=== PATIENT | male | born 1995 | race American Indian/Alaskan Native ===

== ENCOUNTER 2021-09-24 22:33 | Emergency (ER) | payer SELFPAY ==
[2021-09-24] MEDS ORDERED: ASPIRIN 325 MG TAB PO ONE (22:59)
--- NOTE | 2021-09-24 23:39 | XRay Report ---
CHEST 2 VIEWS INDICATION / CLINICAL INFORMATION: Chest Pain. COMPARISON: None available. FINDINGS: SUPPORT DEVICES: None. HEART / MEDIASTINUM: No significant abnormality. LUNGS / PLEURA: No significant pulmonary or pleural abnormality. No pneumothorax. BONES: No significant osseous abnormality. ADDITIONAL FINDINGS: No significant additional findings. IMPRESSION: 1. No active cardiopulmonary disease. Signer Name: Kameron Dwyer II, MD Signed: 09/24/2021 11:34 PM Workstation Name: [id number]
[2021-09-24 23:51] LABS: Basophils % (Auto) 0.2 % (0.0-1.8); Eosinophils # (Auto) 0.1 K/mm3 (0.0-0.4); Eosinophils % (Auto) 0.5 % (0.0-4.3); Hemoglobin 16.4 gm/dl (11.8-15.2); Lymphocytes # (Auto) 1.6 K/mm3 (1.2-5.4); Lymphocytes % (Auto) 16.3 % (13.4-35.0); Mean Corpuscular HGB Conc 33 % (32-34); Mean Corpuscular Volume 87 fl (84-94); Monocytes # (Auto) 0.6 K/mm3 (0.0-0.8); Monocytes % (Auto) 5.8 % (0.0-7.3); Platelet Count 257 K/mm3 (140-440); Red Blood Count 5.74 M/mm3 (3.65-5.03)
[2021-09-25 00:18] LABS: BUN/Creatinine Ratio 13; Blood Urea Nitrogen 16 mg/dL (9-20); Calcium 9.4 mg/dL (8.4-10.2); Hemolysis Index 11
[2021-09-25] MEDS ORDERED: KETOROLAC 10 MG TAB PO ONE (00:24)
[2021-09-25] MEDS ORDERED: TETANUS,DIPH,PERTUSS(ACELL) VACCINE 0.5 ML SYRINGE IM ONE (00:24)
[2021-09-25] MEDS ORDERED: CYCLOBENZAPRINE 10 MG TAB PO ONE (00:24)
[2021-09-25] MEDS ORDERED: LET TOPICAL (LIDOCAINE/EPINEPHRINE/TETRACAINE) 3 ML TP ONE (00:25)
--- NOTE | 2021-09-25 01:31 | Emergency Department Report ---
ED Dizziness HPI - General Chief Complaint: Chest Pain Stated Complaint: CHEST PAIN Time Seen by Provider: 09/25/21 00:02 Source: patient Mode of arrival: Ambulatory Limitations: No Limitations - History of Present Illness Initial Comments: 25-year-old black male with no past medical history presents to the emergency department for evaluation of dizziness, chest pain, headache, and left shoulder pain. He states that he was vaping THC oil and then became dizzy. He states that he attempted to walk to his room but fell down and hit the back of his he ad. He denies loss of consciousness but states that he hit so hard that his head, shoulder, and chest are hurting. He states that he is still dizzy also. He states that he is used vape before but never THC oil in the vape. MD Complaint: dizziness, lightheadedness -: Sudden Timing: sudden onset Description: lightheadedness, off-balance, near-syncope History of Same: No History of Trauma: Yes (Tripped and fell and hit his head after dizziness st arted) Severity: moderate Associated Symptoms: chest pain. denies: confusion, cough, diaphoresis, fever/chills, loss of appetite, malaise, rash, seizure, shortness of breath, syncope, weakness - Related Data Previous Rx's Medication Instructions Recorded Last Taken Type Ibuprofen [Motrin 800 MG tab] 800 mg PO Q8HR PRN #30 tablet 09/25/21 Unknown Rx Allergies Allergy/AdvReac Type Severity Reaction Status Date / Time No Known Allergies Allergy Verified 09/25/21 00:24 ED Review of Systems ROS: Stated complaint: CHEST PAIN Other details as noted in HPI Comment: All other systems reviewed and negative Constitutional: denies: chills, fever Respiratory: denies: cough, shortness of breath, SOB with exertion, SOB at rest, wheezing Cardiovascular: chest pain. denies: palpitations, dyspnea on exertion, orthopnea, edema Gastrointestinal: denies: abdominal pain, nausea, vomiting Genitourinary: denies: urgency, dysuria, frequency, hematuria, discharge, testicular pain Musculoskeletal: denies: back pain Neurological: headache. denies: weakness, numbness, paresthesias, confusion, abnormal gait ED Past Medical Hx - Medications Home Medications: Home Medications Medication Instructions Recorded Confirmed Last Taken Type Ibuprofen [Motrin 800 MG tab] 800 mg PO Q8HR PRN #30 tablet 09/25/21 Unknown Rx ED Physical Exam - General Limitations: No Limitations General appearance: alert, in no apparent distress - Head Head exam: Absent: atraumatic (2 cm posterior scalp laceration) - Eye Eye exam: Present: normal appearance. Absent: conjunctival injection, periorbital swelling, periorbital tenderness - Neck Neck exam: Present: normal inspection, full ROM. Absent: tenderness, lymphadenopathy - Respiratory Respiratory exam: Present: normal lung sounds bilaterally, chest wall tenderness . Absent: respiratory distress, wheezes, rales, rhonchi, stridor - Cardiovascular Cardiovascular Exam: Present: regular rate, normal heart sounds - GI/Abdominal GI/Abdominal exam: Present: soft, normal bowel sounds. Absent: distended, tenderness, guarding, rebound, rigid - Extremities Exam Extremities exam: Present: normal inspection, normal capillary refill. Absent: tenderness, pedal edema, joint swelling, calf tenderness - Back Exam Back exam: Present: normal inspection. Absent: CVA tenderness (R), CVA tenderness (L), paraspinal tenderness, vertebral tenderness - Neurological Exam Neurological exam: Present: alert, oriented X3, CN II-XII intact, normal gait, reflexes normal. Absent: motor sensory deficit - Psychiatric Psychiatric exam: Present: normal affect, normal mood - Skin Skin exam: Present: warm, dry, normal color ED Course Vital Signs 09/24/21 09/25/21 22:57 01:57 Temperature 98.8 F Pulse Rate 97 H 91 H Respiratory 18 12 Rate Blood Pressure 151/91 153/95 [Right] O2 Sat by Pulse 96 100 Oximetry - Laceration /Wound Repair Head Wound Location: head (Right posterior scalp) Wound Length (cm): 2 Wound's Depth, Shape: superficial, linear Wound Explored: clean Irrigated w/ Saline (ccs): 60 Betadine Prep?: No Volume Anesthetic (ccs): 3 (LET) Number of Sutures: 4 (Neto) Layer Closure?: No Sterile Dressing Applied?: No Progress: Patient tolerated well ED Medical Decision Making - Lab Data Result diagrams: 09/24/21 23:37 09/24/21 23:37 - EKG Data Interpretation: no acute changes, normal EKG - Radiology Data Radiology results: report reviewed, image reviewed Chest x-ray: FINDINGS: SUPPORT DEVICES: None. HEART / MEDIASTINUM: No significant abnormality. LUNGS / PLEURA: No significant pulmonary or pleural abnormality. No pneumoth orax. BONES: No significant osseous abnormality. ADDITIONAL FINDINGS: No significant additional findings. IMPRESSION: 1. No active cardiopulmonary disease. - Medical Decision Making 25-year-old black male with no past medical history presents to the emergency department for evaluation of dizziness, chest pain, headache, and left shoulder pain. He states that he was vaping THC oil and then became dizzy. He states that he attempted to walk to his room but fell down and hit the back of his head. He denies loss of consciousness but states that he hit so hard that his head, shoulder, and chest are hurting. He states that he is still dizzy also. He states that he is used vape before but never THC oil in the vape. No acute abnormalities noted on exam. EKG without any acute ischemic changes noted, chest x-ray without any acute abnormalities noted opponent within normal limits. Patient noted to have chest wall tenderness with palpation. Low dela cruz spicion for ACS. Dizziness slightly improved. Scalp laceration repaired with neto. Patient appears to be in no acute distress. He will be discharged home laboratories to use as needed for pain, advised to follow-up in the emergency department in 7 to 10 days for staple removal, consider discontinue use of THC oil, and follow-up with primary care provider if no improvement or worsening symptoms. He is advised to return to the emergency department for any concerning symptoms. He verbalized understanding of and agreement with plan of care. Critical care attestation.: If time is entered above; I have spent that time in minutes in the direct care of this critically ill patient, excluding procedure time. ED Disposition Clinical Impression: Dizziness, Chest wall tenderness Scalp laceration Qualifiers: Encounter type: initial encounter Qualified Code(s): S01.01XA - Laceration without foreign body of scalp, initial encounter Disposition: HOME / SELF CARE / HOMELESS Is pt being admited?: No Does the pt Need Aspirin: No Condition: Stable Instructions: Chest Wall Pain, [id number], Laceration Care, Adult, Eas y-to-Read, Sutures, Neto, or Adhesive Wound Closure, [id number], Dizziness, [id number] Additional Instructions: Take medications as prescribed. Follow-up with primary care provider. Return to the emergency department as needed. Prescriptions: Ibuprofen [Motrin 800 MG tab] 800 mg PO Q8HR PRN #30 tablet PRN Reason: Pain, Moderate (4-6) Referrals: PRIMARY CARE,MD [Primary Care Provider] - 3-5 Days Forms: Work/School Release Form(ED) Time of Disposition: 01:31
[2021-09-25 01:58] VITALS: BP 153/95
--- NOTE | 2021-09-26 10:20 | Electrocardiograph Report ---
[facility] Test Date: 2021-09-25 Test Time: 00:01:13 Pat Name: JOYCE DELEON Department: Room: Gender: M Sr. Payroll Processor: BIRD : 1995 Requested By: AQUILINO MARTINEZ Order Number: [id number] Reading MD: Ulices Fernandez Measurements Intervals [place] Rate: 72 P: 60 MN: 149 QRS: 69 QRSD: 94 T: 90 QT: 366 QTc: 401 Interpretive Statements Sinus rhythm ST elev, probable normal early repol pattern No previous ECG available for comparison Electronically Signed On 09-26-2021 10:19:20 EDT by Ulices Fernandez
== END 2021-09-25 01:58 | disposition home or self-care (01) ==
LOC: ED 22:33
DX: S01.01XA Laceration without foreign body of scalp, initial encounter (principal); R42 Dizziness and giddiness; R07.9 Chest pain, unspecified; W19.XXXA Unspecified fall, initial encounter; Y93.89 Activity, other specified; Y92.89 Other specified places as the place of occurrence of the external cause; Y99.8 Other external cause status
CPT/HCPCS: 36415; 71046; 80048; 84484; 85025; 90471; 90715; 93005; 99284

== ENCOUNTER 2021-10-06 09:49 | Emergency (ER) | payer SELFPAY ==
[2021-10-06 11:51] VITALS: BP 149/84
--- NOTE | 2021-10-06 14:42 | Emergency Department Report ---
Suture/Staple Removal - HPI Chief Complaint: Laceration/Recheck/Suture Stated Complaint: REMOVE NETO Time Seen by Provider: 10/06/21 12:01 Wound Location: Occipital laceration repaired with neto x4 presents today for removal re ED Review of Systems ROS: Stated complaint: REMOVE NETO Other details as noted in HPI Comment: All other systems reviewed and negative ED Past Medical Hx - Past Medical History Previous Medical History?: No - Surgical History Past Surgical History?: No - Social History Smoking Status: Unknown if ever smoked - Medications Home Medications: Home Medications Medication Instructions Recorded Confirmed Last Taken Type Ibuprofen [Motrin 800 MG tab] 800 mg PO Q8HR PRN #30 tablet 09/25/21 Unknown Rx Suture Removal Exam - Exam General: Vital signs noted. No distress. Alert and acting appropriately. Wound to the occipital region intact no dehiscence of neto in place. Wound: No Pathologic Erythema, No Tenderness, No Drainage, No Pus, No Wound Dehiscence Other Systems: All other systems reviewed and are unremarkable. ED Course Vital Signs 10/06/21 10/06/21 10/06/21 10:23 11:50 12:05 Temperature 98.0 F 97.7 F Pulse Rate 94 H 81 Respiratory 16 18 Rate Blood Pressure 149/110 Blood Pressure 149/84 [Left] O2 Sat by Pulse 100 100 97 Oximetry - Procedure Description Procedures done: 4 neto removed from the occipital scalp with staple removal with no complications. No bleeding. The procedure later was tolerated well no complications Critical care attestation.: If time is entered above; I have spent that time in minutes in the direct care of this critically ill patient, excluding procedure time. ED Disposition Clinical Impression: Removal of staple Disposition: 01 HOME / SELF CARE / HOMELESS Is pt being admited?: No Does the pt Need Aspirin: No Condition: Stable Instructions: Wound Closure Removal, Care After Referrals: SHARON SHAIKH MD [Staff Physician] - 3-5 Days
== END 2021-10-06 12:11 | disposition home or self-care (01) ==
LOC: ED 09:49
DX: S01.81XD Laceration without foreign body of other part of head, subsequent encounter (principal); X58.XXXD Exposure to other specified factors, subsequent encounter; Z48.02 Encounter for removal of sutures
CPT/HCPCS: 99282